=== PATIENT | male | born 1930 | race Caucasian/White ===

== ENCOUNTER 2017-04-22 09:04 | Outpatient (CLI) | payer MEDICARE ==
--- NOTE | 2017-04-22 11:55 | ULT ---
BILATERAL TESTICULAR ULTRASOUND: Date: 04/22/17 HISTORY: Scrotal swelling. COMPARISON: None. TECHNIQUE: Gillespie scale, color flow, Doppler imaging, and spectral waveform analysis performed of the left and rig ht testicles. FINDINGS: Right Hemiscrotum: Right testicle has a homogeneous echotexture. No intratesticular mass. Right testicle measures 3.8 x 2.0 x 4.1 cm. Epididymis has a slightly heterogeneous echotexture suspicious for possible small epidi dymal cyst. Overall, epididymis measures 0.9 x 0.7 cm. There is a large right-sided hydrocele with se ptation. Left Hemiscrotum: Left testicle has a homogeneous echotexture. No intratesticular masses. Left testicle measures 4.8 x 3.1 x 1.9 cm. Left epididymis measures 0.5 x 1.0 cm. There is a large left-sided hydrocele. Small mary unt of septation suspected. Testicular Doppler: There is symmetric and vascular flow to the left and right testicle. IMPRESSION: Large, septated hydroceles, bilaterally. POS: [facility]
== END 2017-04-22 09:05 | disposition home or self-care (01) ==
LOC: ULT 09:04
PROVIDERS: ATTEND Family Medicine
DX: N50.89 Other specified disorders of the male genital organs (principal); N43.3 Hydrocele, unspecified
CPT/HCPCS: 76870; 93976

== ENCOUNTER 2017-05-31 09:57 | Outpatient (CLI) | payer MEDICARE ==
[2017-05-31 12:12] LABS: Bilirubin Negative (Negative); Blood, Urine Negative (Negative); Clarity CLEAR (Clear); Glucose, Urine (Dipstick) Negative (Negative); Leukocyte Negative (Negative); Nitrite Negative (Negative); Protein, Urine (Dipstick) Trace mg/dL (Neg-Trace); Specific Gravity, Urine 1.022 (1.002-1.036); pH, Urine 6.5 (5.0-9.0)
[2017-05-31 12:14] LABS: Bacteria/HPF None Seen HPF (None Seen); Hyaline Casts/LPF 4-6 HYALINE CAST LPF (0-3 Hyaline); RBC/HPF 0-3 HPF (0-3); Squamous Epithelial 0-3 HPF (0-3); WBC/HPF 0-3 HPF (0-3)
--- NOTE | 2017-06-06 08:37 | EKG ---
Test Reason : Blood Pressure : / mmHG Vent. Rate : 073 BPM Atrial Rate : 073 BPM P-R Int : 174 ms QRS Dur : 066 ms QT Int : 382 ms P-R-T Axes : 060 -05 066 degrees QTc Int : 420 ms Poor data quality, interpretation may be adversely affected Sinus rhythm with occasional , and consecutive Premature ventricular complexes and Fusion complexes Abnormal ECG When compared with ECG of 25-FEB-2016 09:44, Fusion complexes are now Present QRS duration has decreased Confirmed by TOM FISH MD ([id number]) on 06/06/2017 8:37:09 AM Referred By: HEMA Confirmed By:TOM FISH MD
== END 2017-05-31 09:58 | disposition home or self-care (01) ==
LOC: LABBT 09:57
PROVIDERS: ATTEND Urology
DX: Z01.818 Encounter for other preprocedural examination (principal); N43.3 Hydrocele, unspecified
CPT/HCPCS: 81001; 87086; 93005; 93010

== ENCOUNTER 2017-06-08 06:48 | Day surgery (SDC) | payer MEDICARE ==
[2017-05-31 10:39] VITALS: BMI 24.3
[2017-06-08] MEDS ORDERED: Bupivacaine 0.25% HCL 30 ML VIAL ONE (08:33)
[2017-06-08] MEDS ORDERED: Lidocaine 1% (PF) 30 ML VIAL ONE (08:33)
[2017-06-08] MEDS ORDERED: Bacitracin Zinc Ointment 30 gm TUBE ONE (08:33)
[2017-06-08] MEDS ORDERED: Ondansetron HCl/PF 4 MG/2 ML Vial ONE (08:38)
[2017-06-08] MEDS ORDERED: Famotidine/PF 20 mg/2ml Vial ONE (08:38)
[2017-06-08] MEDS ORDERED: Fentanyl 100 MCG/2 ML VIAL ONE ×2 (08:38→10:26)
[2017-06-08] MEDS ORDERED: Ondansetron HCl/PF 4 MG/2 ML Vial IVP PRN ×2 (10:29)
[2017-06-08] MEDS ORDERED: Promethazine HCl 25 MG/ML VIAL IM/IV PRN ×2 (10:29)
[2017-06-08] MEDS ORDERED: HYDROcodone/Acetaminophen 5/325 mg Tablet ONE ×2 (11:08→11:43)
--- NOTE | 2017-06-08 12:02 | OP ---
DATE OF SERVICE: 06/08/2017 PREOPERATIVE DIAGNOSIS: Left hydrocele. POSTOPERATIVE DIAGNOSIS: Left hydrocele. PROCEDURE: Left hydrocelectomy bottleneck fashion. SURGEON: Kierra Singh M.D. ANESTHESIA: General with LMA and local anesthetic using 0.25% Marcaine approximately 12 mL BLOOD LOSS: Minimal. DRAIN REMAINING: Mio. COMPLICATIONS: None. FLUID COLLECTED: 525 mL of yellow hydrocele fluid, not sent for specimen. Hydrocele sac was partially resected and also not sent for specimen. INDICATIONS: The patient is an 87-year-old male who is followed in the office for a bothersome left hydrocele. We discussed how unless it was bothered him on a daily basis I would not recommend a resection. He was ready to proceed with this as it was quite bothersome to him. TECHNIQUE: The patient was brought to the room by anesthesia, lying on table in supine position. After general anesthetic, he was laid supine and prepped and draped in sterile fashion. Using an incision in the mid scrotum, it was taken down to the tunica albuginea at least the layers just before that. Once this was taken all the way down, then blunt dissection was able to fully dissect this plane around the hydrocele itself and then it was delivered through the incision and the excess attachments taken down to the neck of the cord. Then, 2 snaps were placed and an incision was made to open up the hydrocele sac, 525 mL of yellow solution was obtained. The sac was then fully opened with electrocautery. The testicle inspected and found to have no lesions nor appendages. A portion of the hydrocele sac was resected and then it was repaired in a bottleneck fashion using 0 Vicryl to reapproximate it in inverted fashion leaving at least a fingerbreadth at the neck of the repair, there was concern initially for in addition to the hydrocele sac, a hernia sac, but this was probed and found to be blind ending as this was just redundant tunica as opposed to any hernia sac. Once the edges of the hydrocele sac were sewn over, then attention was turned to the scrotum where hemostasis was achieved with electrocautery. The testicle was aligned in normal position and put back into the scrotum. Irrigation was used to rinse out the scrotum before returning the testicle to it. Then, the dartos layer was grasped with Allis clamps and before that, an incision was made in the dependent portion of the scrotum for a Mio drain which was placed with a nylon suture and then 3-0 Vicryl was used to reapproximate the dartos in running fashion and 3-0 chromic was used to reapproximate the skin in running fashion. Bacitracin, fluffs and a scrotal support were then applied. The patient tolerated the procedure well and was then awakened and transferred to PACU in stable condition. ARPITA
== END 2017-06-08 12:10 | disposition home or self-care (01) ==
LOC: SDC 06:48
PROVIDERS: ATTEND Urology
PROC: 0VBG0ZZ Excision of Left Spermatic Cord, Open Approach (ICD-10-PCS; principal; 2017-06-08)
DX: N43.3 Hydrocele, unspecified (principal); R35.1 Nocturia; R31.21 Asymptomatic microscopic hematuria; N43.41 Spermatocele of epididymis, single; E78.5 Hyperlipidemia, unspecified; I10 Essential (primary) hypertension; Z90.49 Acquired absence of other specified parts of digestive tract; Z98.890 Other specified postprocedural states; Z85.038 Personal history of other malignant neoplasm of large intestine
CPT/HCPCS: 96374; J0690; J2001; J2405; J3010; S0020; S0028

== ENCOUNTER 2017-06-23 10:47 | Emergency (ER) | payer MEDICARE ==
[2017-06-23 11:30] LABS: #Monocytes 0.6 thou/uL (0.11-0.59); #Neutrophils 5.2 thou/uL (1.40-6.50); %Basophils 0.5 % (0.0-1.0); %Eosinophils 0.3 % (0.0-10.0); %Lymphocytes 14.7 % (21.0-51.0); %Monocytes 9.2 % (0.0-10.0); %Neutrophils 75.3 % (42.0-75.0); Hemoglobin 15.1 g/dL (14.0-18.0); Mean Corpuscular Hemoglobin 31.1 pg (27.0-31.0); Mean Corpuscular Volume 94.1 fl (80.0-94.0); Mean Platelet Volume 7.6 fL (7.4-10.4); Platelet Count 341 thou/uL (130-400); RBC Distribution Width 12.3 % (11.5-14.5); Red Blood Cell (RBC) Count 4.87 mill/uL (4.70-6.10)
[2017-06-23 11:49] LABS: ALT (SGPT) 24 U/L (8-55); AST (SGOT) 24 U/L (5-34); Albumin 3.8 g/dL (3.4-4.8); Alkaline Phosphatase 72 U/L (40-150); Anion Gap 14 mmol/L (10-20); BUN (Urea Nitrogen) 16 mg/dL (8.4-25.7); Bilirubin, Total 0.8 mg/dL (0.2-1.2); Calc. Creatinine Clearance 0 mL/min (70-130); Carbon Dioxide 28 mmol/L (23-31); Chloride 98 mmol/L (98-107); Estimated GFR-MDRD 76; Globulin 3.1 g/dL (2.4-3.5); Glucose 113 mg/dL (83-110); Potassium 3.6 mmol/L (3.5-5.1); Protein, Total 6.9 g/dL (5.8-8.1); Sodium 136 mmol/L (136-145)
[2017-06-23 12:08] LABS: Bilirubin Negative (Negative); Blood, Urine Negative (Negative); Clarity CLEAR (Clear); Glucose, Urine (Dipstick) Negative (Negative); Leukocyte Negative (Negative); Nitrite Negative (Negative); Protein, Urine (Dipstick) Negative (Neg-Trace); Specific Gravity, Urine 1.012 (1.002-1.036)
== END 2017-06-23 13:18 | disposition home or self-care (01) ==
LOC: ERS 10:47
DX: R35.0 Frequency of micturition (principal); I10 Essential (primary) hypertension; E78.5 Hyperlipidemia, unspecified; Z79.899 Other long term (current) drug therapy
CPT/HCPCS: 36415; 80053; 81003; 85025; 99284

== ENCOUNTER 2017-06-26 09:10 | Inpatient (IN) | payer MEDICARE ==
[2017-06-26 10:05] LABS: #Lymphocytes 0.6 thou/uL (1.20-3.40); #Monocytes 0.6 thou/uL (0.11-0.59); #Neutrophils 6.8 thou/uL (1.40-6.50); %Eosinophils 0.1 % (0.0-10.0); %Neutrophils 84.9 % (42.0-75.0); Hemoglobin 17.5 g/dL (14.0-18.0); Mean Corpuscular HGB CONC 33.4 g/dL (32.0-36.0); Mean Corpuscular Volume 92.7 fl (80.0-94.0); Mean Platelet Volume 7.6 fL (7.4-10.4); Platelet Count 334 thou/uL (130-400); RBC Distribution Width 12.4 % (11.5-14.5); Red Blood Cell (RBC) Count 5.63 mill/uL (4.70-6.10)
[2017-06-26 10:10] LABS: INR-International Normal Ratio 1.1; PTT 32.1 SEC (22.9-36.1); Prothrombin Time 14.4 SEC (12.0-14.7)
[2017-06-26 10:18] LABS: ALT (SGPT) 21 U/L (8-55); AST (SGOT) 23 U/L (5-34); Alkaline Phosphatase 79 U/L (40-150); Anion Gap 14 mmol/L (10-20); BUN (Urea Nitrogen) 18 mg/dL (8.4-25.7); Calc. Creatinine Clearance 0 mL/min (70-130); Calcium 9.8 mg/dL (7.8-10.44); Carbon Dioxide 31 mmol/L (23-31); Chloride 92 mmol/L (98-107); Estimated GFR-MDRD 62; Globulin 3.4 g/dL (2.4-3.5); Glucose 141 mg/dL (83-110); Lipase 14 U/L (8-78); Potassium 4.3 mmol/L (3.5-5.1); Protein, Total 7.4 g/dL (5.8-8.1); Sodium 133 mmol/L (136-145)
--- NOTE | 2017-06-26 11:13 | CT ---
CT ABDOMEN AND PELVIS WITH IV CONTRAST: DATE: 06/26/17. HISTORY: Abdominal distention and abdominal pain. The family reports bright red blood per rectum since June t. COMPARISON: None available. FINDINGS: There is mild bibasilar atelectasis with mild elevation of the left hemidiaphragm. There are scattered subcentimeter too small to characterize hypodense lesions in each lobe of the neftaly er with a lobulated low-density structure within the dome of the liver which measures 3.2 cm x 1.9 cm . This may represent a lobulated cyst or conglomeration of small cysts within the dome of the liver. There are subcentimeter too small to characterize hypodense lesions seen in each kidney. There is a larger hypodense lesion within the mid portion of the left kidney which does not demonstrate an atten uation coefficient consistent with simple cyst. Further evaluation with renal ultrasound is recommen ded. The spleen, pancreas, bilateral adrenal glands, and urinary bladder demonstrate a normal CT appearanc e. There is colonic diverticulosis. There is distention of the rectum. Postsurgical changes related to right hemicolectomy are noted. The anastomosis is seen within the region of the mid transverse in t he central abdomen. Multiple dilated loops of small bowel are present measuring up to 3.5 cm in diameter and are fluid an d gas filled. The dilated loops of bowel extend to the level of the small bowel and large bowel anas tomosis. A moderate amount of retained fecal material is seen within the rectum with presacral and minimal per irectal inflammatory changes seen. Again, the rectum is distended with a large amount of retained fe moisés material. Findings may be related to a fecal impaction within the rectum. A stercoral colitis c annot be entirely excluded given the perirectal inflammatory stranding present. Vascular calcifications are seen in the abdominal aorta and involving the iliac arteries. A small amount of free fluid is seen adjacent to the liver. There are bilateral hydroceles with very large left hydrocele present with a question of septations. However, there is also a rounded low-density mass-like structure within the left scrotum. This does not have a normal appearance suggesting a testicle, but this is not well evaluated on this examinati on. However, this mass-like density is not well evaluated. Prior scrotal ultrasound on 04/22/17 did d emonstrate large bilateral hydroceles. IMPRESSION: 1. Partial small bowel obstruction with dilated loops of bowel extending to the level of the small b owel/large bowel anastomosis in the central abdomen. 2. Hypodense left renal lesion which cannot be characterized as a simple cyst on this exam. Followu p renal sonogram on a nonemergent basis is suggested. There are also subcentimeter too small to alex acterize hypodense lesions in each kidney. 3. Large amount of retained fecal material in the rectum, and the rectum is distended with adjacent perirectal inflammatory changes. While the inflammatory change is probably related to distension of the rectum, stercoral colitis cannot be excluded based on this exam. 4. Colonic diverticulosis. 5. Large left and small right-sided hydroceles. There is a rounded mass-like structure within the l eft scrotum centered in the region of the large left hydrocele of which the exact etiology is uncerta in. A normal-appearing testicle is not visualized on the CT evaluation. Followup testicular ultraso und is recommended due to this appearance. 6. Small amount of ascites. POS: [facility]
[2017-06-26 11:22] LABS: Bilirubin Negative (Negative); Blood, Urine Negative (Negative); Clarity CLEAR (Clear); Glucose, Urine (Dipstick) Negative (Negative); Leukocyte Negative (Negative); Nitrite Negative (Negative); Protein, Urine (Dipstick) Trace mg/dL (Neg-Trace); pH, Urine 8.5 (5.0-9.0)
[2017-06-26 11:31] LABS: Specific Gravity, Urine Greater than 1.060 (1.002-1.036)
[2017-06-26] MEDS ORDERED: Fleet Enema 133 ML BOT PR SCH (12:15)
[2017-06-26] MEDS ORDERED: Acetaminophen 325 MG TAB PO PRN (12:54)
[2017-06-26 13:09] LABS: Magnesium 2.4 mg/dL (1.6-2.6); Phosphorus 3.6 mg/dL (2.3-4.7)
[2017-06-26] MEDS: Sodium Chloride 0.9% 1,000 ML IV SCH ×2 (13:20→18:40)
[2017-06-26] MEDS ORDERED: ISOVUE-370 76%-LOCM 1 ML ONE (13:24)
[2017-06-26 13:34] VITALS: BMI 24.3
[2017-06-26] MEDS ORDERED: Senokot S 8.6-50 MG TAB PO SCH (14:30)
[2017-06-26] MEDS ORDERED: Polyethylene Glycol 3350 17 GM Packet PO SCH (14:30)
[2017-06-26] MEDS ORDERED: Bisacodyl 10 MG SUPP PR SCH (15:15)
[2017-06-26] MEDS: Hydrocortisone/Pramoxine (Proctofoam HC) 10 GM BOX PR SCH ×2 (15:27→20:36)
--- NOTE | 2017-06-26 17:23 | HP ---
DATE OF ADMISSION: 06/26/2017 PRIMARY CARE PHYSICIAN: Dr. Jonathan Day. CHIEF COMPLAINT: Abdominal discomfort. HISTORY OF PRESENT ILLNESS: Patient is an 87-year-old male with history of colon cancer, diverticulosis and anal fissure with hemorrhoids, presented to the hospital with abdominal discomfort. Over the past 2-3 weeks, patient has on and off abdominal discomfort along with constipation. The abdominal pain was generalized without any aggravating or relieving factors. There was no nausea, vomiting, fever or chills reported. His pain was moderate in intensity, more or less constant. He denies any palpitations, diaphoresis, heartburn or weight loss. He was recently evaluated by General Surgery, Dr. Jaramillo and was diagnosed with fecal impaction. He also was found to have anal fissure with hemorrhoids. He had intermittent bright red blood mixed with stool. PAST MEDICAL HISTORY: 1. History of colon cancer. 2. Diverticulosis. 3. Hypertension. 4. Dyslipidemia. 5. Recent surgery for hydrocele. 6. Diverticulosis. 7. Hospitalization for syncope. PAST SURGICAL HISTORY: 1. Colon surgery. 2. Hydrocele surgery, recently. ALLERGIES: No known drug allergies. CURRENT HOME MEDICATIONS: Patient is on pravastatin and felodipine. Dosages to be confirmed. SOCIAL HISTORY: Patient drinks alcohol socially. No alcohol use. Currently lives alone. His in the last 2-3 years. He has 3 children. Has good family support. He is DNR. He makes his own decisions with the help of his family. FAMILY HISTORY: Negative for heart disease or malignancy. REVIEW OF SYSTEMS: The following complete review of systems was negative, unless otherwise mentioned in the HPI or below: Constitutional: Weight loss or gain, ability to conduct usual activities. Skin: Rash, itching. Eyes: Double vision, pain. ENT/Mouth: Nose bleeding, neck stiffness, pain, tenderness. Cardiovascular: Palpitations, dyspnea on exertion, orthopnea. Respiratory: Shortness of breath, wheezing, cough, hemoptysis, fever or night sweats. Gastrointestinal: Poor appetite, abdominal pain, heartburn, nausea, vomiting, constipation, or diarrhea. Genitourinary: Urgency, frequency, dysuria, nocturia. Musculoskeletal: Pain, swelling. Neurologic/Psychiatric: Anxiety, depression. Allergy/Immunologic: Skin rash, bleeding tendency. PHYSICAL EXAMINATION: VITAL SIGNS: Temperature 97.6, respirations 20, pulse rate of 78 with blood pressure of 175/109 that improved to 153/88. GENERAL: An 86-year-old male in no apparent distress. HEENT: Head is atraumatic, normocephalic, sclerae are anicteric. Moist mucous membranes. No oral lesion. NECK: Supple, no JVD, no carotid bruit. LUNGS: Clear to auscultation bilaterally, no wheezing, rales or rhonchi. HEART: S1, S2 present. Regular rate and rhythm, 2/6 systolic murmur over the mitral area. ABDOMEN: Soft, mild generalized tenderness, no rebound, guarding, no costovertebral angle tenderness. Bowel sounds were present. Rectal exam showed minimal stool in the rectal vault.He was partially disimpacted in the ER. GENITOURINARY: There is mild tenderness over the surgical site without significant erythema or tenderness. EXTREMITIES: No edema or calf tenderness. NEUROLOGIC: Grossly nonfocal, moves all four extremities. PSYCHIATRY: Alert, awake, oriented x3. SKIN: Warm and dry. LYMPH NODES: No palpable lymph nodes in the neck. PERIPHERAL VASCULAR: Radial pulses palpable bilaterally. MUSCULOSKELETAL: No joint swelling or tenderness. LABORATORY FINDINGS: CBC showed WBC 8.0 with hemoglobin 17.5, platelet count 334. Chemistry showed sodium 133, potassium 4.3, chloride 92, bicarbonate 31, BUN 18, creatinine 1.1. CT scan of the abdomen with IV contrast showed partial small-bowel obstruction with dilated loops of bowel extending to the level of small bowel/large bowel anastomosis in the central abdomen. It also showed findings consistent with fecal impaction with diverticulosis. There was also some other findings including left renal cyst and brown mass-like structure within the left scrotum. KUB done yesterday by my review showed nonspecific bowel gas pattern. IMPRESSION: 1. Abdominal discomfort secondary to fecal impaction. 2. Diverticulosis. 3. Recent hydrocele surgery with abnormal CT. He denies any testicular discomfort. 4. Abnormal left renal lesion consistent with simple cyst. An ultrasound as an outpatient is recommended. 5. Hypertension. His blood pressure was uncontrolled on ER arrival. 6. Dyslipidemia. PLAN: Patient will be monitored in the hospital overnight. We will continue Fleet enemas with MiraLax and Senokot S p.r.n. We will repeat KUBs in a.m. We will resume his home medications including antihypertensives. IV Fluids. Plan of care was discussed with the patient in detail. He stated understanding. ARPITA
[2017-06-26] MEDS: Senokot S 8.6-50 MG TAB PO SCH (20:37)
[2017-06-26] MEDS: Polyethylene Glycol 3350 17 GM Packet PO SCH (20:37)
[2017-06-26] MEDS: Fleet Enema 133 ML BOT PR SCH (20:38)
[2017-06-26] MEDS ORDERED: Pravastatin Sodium 40 MG TAB PO SCH (21:00)
[2017-06-27] MEDS ORDERED: Mag-Al 1200 mg/1200 mg/30 ML UDCUP PO PRN (07:48)
[2017-06-27] MEDS ORDERED: Ondansetron HCl/PF 4 MG/2 ML Vial IVP PRN (07:48)
[2017-06-27] MEDS ORDERED: Acetaminophen 325 MG TAB PO PRN (07:48)
[2017-06-27] MEDS ORDERED: Ondansetron ODT 4 MG TAB PO PRN (07:48)
[2017-06-27] MEDS ORDERED: Calcium Carbonate 500 MG ChewTAB PO PRN (07:48)
[2017-06-27] MEDS: Fleet Enema 133 ML BOT PR SCH ×3 (08:14→22:03)
[2017-06-27] MEDS: Sodium Chloride 0.9% 1,000 ML IV SCH ×3 (08:14→22:02)
[2017-06-27] MEDS: Hydrocortisone/Pramoxine (Proctofoam HC) 10 GM BOX PR SCH ×3 (08:14→22:03)
[2017-06-27] MEDS: Senokot S 8.6-50 MG TAB PO SCH (08:16)
[2017-06-27] MEDS: Polyethylene Glycol 3350 17 GM Packet PO SCH (08:16)
[2017-06-27] MEDS ORDERED: Citrucel 500 MG TAB PO SCH (09:00)
[2017-06-27] MEDS ORDERED: Bisacodyl 10 MG SUPP PR SCH (09:00)
[2017-06-27] MEDS ORDERED: Milk Of Magnesia 30 ML UDCUP PO SCH (09:00)
[2017-06-27] MEDS ORDERED: Famotidine 20 MG TAB PO SCH (09:00)
[2017-06-27 09:21] LABS: Anion Gap 12 mmol/L (10-20); BUN (Urea Nitrogen) 23 mg/dL (8.4-25.7); Calc. Creatinine Clearance 58 mL/min (70-130); Carbon Dioxide 26 mmol/L (23-31); Chloride 99 mmol/L (98-107); Estimated GFR-MDRD 78; Glucose 155 mg/dL (83-110); Magnesium 2.4 mg/dL (1.6-2.6); Phosphorus 3.7 mg/dL (2.3-4.7); Sodium 133 mmol/L (136-145)
[2017-06-27] MEDS ORDERED: Acetaminophen 650 MG Suppository PR PRN (11:05)
[2017-06-27] MEDS ORDERED: hydrALAZINE 20 MG/ML VIAL SLOW IVP PRN (11:07)
[2017-06-27] MEDS ORDERED: Labetalol HCl 100 MG/20 ML VIAL SLOW IVP PRN (11:07)
--- NOTE | 2017-06-27 11:56 | RAD ---
TWO VIEWS ABDOMEN: HISTORY: Small bowel obstruction. Fecal impaction. COMPARISON: 06/25/17. FINDINGS: Multiple distended air-filled loops of small bowel. There is evidence for a small bowel obstruction. Paucity of colonic gas is noted. Limited evaluation for pneumoperitoneum as the diaphragm has been excluded on this exam. IMPRESSION: Small bowel obstruction. Consider general surgical consultation. CODE T POS: [facility]
[2017-06-27] MEDS ORDERED: Lactulose 10 GM/15 ML Oral Solution PR SCH (12:30)
--- NOTE | 2017-06-27 20:44 | CON ---
DATE OF CONSULTATION: 06/27/2017 SURGICAL CONSULTATION PRIMARY CARE PHYSICIAN: Dr. Jonathan Day. CHIEF COMPLAINT: Constipation, abdominal pain, concern for small-bowel obstruction. HISTORY OF PRESENT ILLNESS: Patient is an 87-year-old white male. He gives a remote history of surg luis manuel for colon cancer in [place]. He did not require chemotherapy. He has recently been having progr essive problems with abdominal pain. He notes that he has not had a bowel movement in a while. He p resented to the emergency room yesterday for evaluation of this. Patient had a CT scan performed in the emergency room revealing dilated loops of small bowel with a large ball of stool represented feca l impaction within the rectum. The patient denied any nausea or vomiting, but did note that he had s ome diffuse abdominal discomfort. He was admitted by the hospitalist service. Apparently, nobody ev er did a fecal disimpaction. An abdominal film was done today which showed multiple loops of dilated small bowel consistent with small-bowel obstruction. Nasogastric tube was placed, even though the p atient had not vomited and patient was transferred to the surgical floor. I am consulted, pam garcia for a small-bowel obstruction. Patient notes that he has had a history of constipation. He is not certain what, if anything, he is taken to help regulate his bowels. He tells me his daughter knows and she is not here currently. PAST MEDICAL HISTORY: 1. History of colon cancer (remote, not treated with chemotherapy). 2. Diverticulosis. 3. Hypertension. 4. Dyslipidemia. PAST SURGICAL HISTORY: 1. Right hemicolectomy performed many years ago. 2. Hydrocelectomy in May performed by Dr. Singh. ALLERGIES: No known drug allergies. CURRENT MEDICATIONS: He takes pravastatin and felodipine. He believes he is taken a third medicatio n, but it is not certain what this is. PERSONAL/SOCIAL HISTORY: He is . He had 3 children. He lives in [place] by himself. He has a DNR status. He does not smoke and drinks alcohol socially. REVIEW OF SYSTEMS: Otherwise, unremarkable. FAMILY HISTORY: Noncontributory. PHYSICAL EXAMINATION: VITAL SIGNS: His temperature is 97.2, pulse is between 74 and 91, blood pressure is 120/80. GENERAL: He is a well-developed, well-nourished, pleasant white male in no acute distress. He does have a nasogastric tube in, but little is draining from this. He is alert and oriented x3 and answer s all questions appropriately. HEENT: Unremarkable. NECK: Supple. LUNGS: Clear to auscultation anteriorly. CARDIAC: Regular rate and rhythm. ABDOMEN: Seems mildly to moderately protuberant. Bowel sounds are present and appear to be normoact maryanne. I do not appreciate any tympanitic bowel sounds. RECTAL: Rectal exam is performed. There is a hard fecal impaction just inside the anal sphincter. With appropriate lubrication and reassurance, I performed a fecal disimpaction. There was a large vo lume of stool in the distal rectum and as this was disimpacted hard stool from the upper rectum passe d down to the lower rectum where was all easily removed. The patient is surprisingly seemed to jacob ate it very well. LABORATORY DATA: CBC from yesterday revealed white blood cell count of 8, hemoglobin of 17.5. Chemi stry profile from today revealed essentially normal electrolytes along with calcium, phosphorus and m agnesium. ASSESSMENT AND PLAN: Patient with severe constipation resulted in a fecal impaction. This was jaden cartery disimpacted by myself this afternoon. I will begin an aggressive course of enemas. Tomorrow, I will obtain a Gastrografin small bowel follow-through. I suspect after the stool from his rectum and colon is cleared, his small bowel function will be appropriate. It is possible that he could have a small-bowel obstruction from another etiology, but it seemed to be awfully coincidental.
[2017-06-27] MEDS ORDERED: Famotidine/PF 20 mg/2ml Vial SLOW IVP SCH (21:00)
[2017-06-27] MEDS ORDERED: Nystatin Powder 15 GM BOT TOP SCH (21:00)
--- NOTE | 2017-06-27 23:22 | PDOC.PN ---
- Subjective Encounter Start Date: 06/27/17 Encounter Start Time: 11:00 Patient seen and examined for abd pain. No new complaints. No overnight events - Objective MAR Reviewed: Yes Vital Signs & Weight: Vital Signs (12 hours) Temp Pulse Resp BP Pulse Ox 06/27/17 20:00 98.1 F 86 18 134/78 90 L 06/27/17 13:00 98.1 F 86 18 92 L Weight Weight 165 lb I&O: 06/26/17 06/27/17 06/28/17 06:59 06:59 06:59 Intake Total 875 Balance 875 Result Diagrams: 06/28/17 04:06 06/28/17 04:06 Radiology Reviewed by me: Yes (KUB - SBO) Phys Exam - Physical Examination Constitutional: NAD Respiratory: no wheezing, no rhonchi Cardiovascular: RRR, no rub Gastrointestinal: positive bowel sounds firm, no guarding, rigidity Musculoskeletal: no edema Neurological: moves all 4 limbs Dx/Plan (1) SBO (small bowel obstruction) Code(s): K56.609 - UNSP INTESTNL OBST, UNSP TO PARTIAL VERSUS COMPLETE OBST Status: Acute (2) Fecal impaction Code(s): K56.41 - FECAL IMPACTION Status: Acute (3) HTN (hypertension) Code(s): I10 - ESSENTIAL (PRIMARY) HYPERTENSION Status: Chronic (4) Diverticulosis Code(s): K57.90 - DVRTCLOS OF INTEST, PART UNSP, W/O PERF OR ABSCESS W/O BLEED Status: Chronic - Plan DVT proph w/SCDs NG tube -: Consult gen surg -: Enema -: IV fluids -: NPO, PRN BP meds Review of Systems - Review of Systems Respiratory: negative: Cough, Dry, Shortness of Breath, Hemoptysis, SOB with Excertion, Pleuritic Pain, Sputum, Wheezing Cardiovascular: negative: chest pain, palpitations, orthopnea, paroxysmal nocturnal dyspnea, edema, light headedness, other - Medications/Allergies Allergies/Adverse Reactions: Allergies Allergy/AdvReac Type Severity Reaction Status Date / Time No Known Allergies Allergy Verified 05/31/17 10:39 Medications: Current Medications Acetaminophen (Tylenol) 650 mg PO Q4H PRN PRN Reason: Headache/Fever or Pain Acetaminophen (Tylenol) 650 mg SC Q4H PRN PRN Reason: Headache/Fever or Pain Al Hydroxide/Mg Hydroxide (Maalox) 30 ml PO Q6H PRN PRN Reason: Heartburn or Indigestion Calcium Carbonate (Tums) 1,000 mg PO Q4H PRN PRN Reason: Heartburn or Indigestion Famotidine (Pepcid) 20 mg SLOW IVP BID [facility] Last Admin: 06/27/17 22:03 Dose: 20 mg Hydralazine HCl (Apresoline) 10 mg SLOW IVP Q4H PRN PRN Reason: SBP Greater Than 180 Hydrocortisone/Pramoxine (Proctofoam Hc) 0 gm SC TID [facility] Last Admin: 06/27/17 22:03 Dose: 1 spray Sodium Chloride (Normal Saline 0.9%) 1,000 mls @ 125 mls/hr IV .Q8H [facility] Last Admin: 06/27/17 22:02 Dose: 1,000 mls Labetalol HCl (Normodyne) 10 mg SLOW IVP Q4H PRN PRN Reason: Systolic BP > 180 Lactulose (Lactulose 10 Gm/15ml Oral Flores) 200 gm SC NOW [facility] Stop: 05/12/21 14:30 Last Admin: 06/27/17 15:21 Dose: 200 gm Nystatin (Mycostatin Powder) 0 gm TOP BID [facility] Last Admin: 06/27/17 22:03 Dose: 1 applic Ondansetron HCl (Zofran Odt) 4 mg PO Q6H PRN PRN Reason: Nausea/Vomiting Last Admin: 06/27/17 08:15 Dose: 4 mg Ondansetron HCl (Zofran) 4 mg IVP Q6H PRN PRN Reason: Nausea/Vomiting Sodium Biphosphate/Sodium Phosphate (Fleet Enema) 133 ml SC TID [facility] Last Admin: 06/27/17 22:03 Dose: 133 ml
[2017-06-28 04:44] LABS: Anion Gap 14 mmol/L (10-20); BUN (Urea Nitrogen) 27 mg/dL (8.4-25.7); Calc. Creatinine Clearance 62 mL/min (70-130); Calcium 8.4 mg/dL (7.8-10.44); Carbon Dioxide 23 mmol/L (23-31); Chloride 104 mmol/L (98-107); Estimated GFR-MDRD 84; Glucose 111 mg/dL (83-110); Magnesium 2.8 mg/dL (1.6-2.6); Phosphorus 3.3 mg/dL (2.3-4.7); Potassium 4.9 mmol/L (3.5-5.1); Sodium 136 mmol/L (136-145)
[2017-06-28 04:56] LABS: Band 32 % (5-11); Lymphocytes 17 % (21-51); MDiff Complete? YES; Mean Corpuscular Hemoglobin 31.3 pg (27.0-31.0); Mean Corpuscular Volume 94.9 fl (80.0-94.0); Mean Platelet Volume 7.9 fL (7.4-10.4); Monocytes 12 % (0-10); Neutrophil 39 % (42-75); Platelet Count 283 thou/uL (130-400); RBC Distribution Width 12.3 % (11.5-14.5); Red Blood Cell (RBC) Count 4.47 mill/uL (4.70-6.10); White Blood Cell (WBC) Count 4.4 thou/uL (4.8-10.8)
[2017-06-28] MEDS ORDERED: Sodium Chloride 0.9% 1,000 ML IV SCH ×2 (06:29→12:44)
[2017-06-28 12:02] VITALS: TEMP 97.7
[2017-06-28] MEDS ORDERED: MD-Gastroview 120 ML BOT ONE (13:06)
--- NOTE | 2017-06-28 14:37 | RAD ---
SMALL BOWEL STUDY: Date: 06-28-17 History: Dilated loops of small bowel, bowel obstruction. FINDINGS: Nasogastric tube is noted in place with the tip overlying the expected location of the body of the st omach. Dilated loops of small bowel are seen on the construction safety manager image. Gastrografin was administered via th e nasogastric tube and again multiple dilated loops of bowel are seen. There is faint opacification o f the colon on the one hour image with increasing contrast into the colon on the delayed image at 3 h ours 30 minutes where contrast appears to be in the rectum. 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 IMPRESSION: 1. Partial small bowel obstruction which is actually likely secondary to a mass in the colon near the splenic flexure noted on the CT scan of the abdomen. Further evaluation with colonoscopy is recommen ded. 2. Above findings discussed with Dr. Patton of 06-28-17 at 1316 hours. POS: [facility]
--- NOTE | 2017-06-28 15:41 | PRG ---
DATE OF SERVICE: 06/28/2017 SUBJECTIVE: Mr. Myers is seen one day after performed a fecal disimpaction on him yesterday. I felt this was likely the cause of not only his constipation, but also his apparent bowel obstruction. He had several bowel movements with enemas following his disimpaction. Today, I had ordered a Malissa rografin small bowel follow through. The contrast went through appropriately quickly and resulted in numerous bowel movements of both stool and liquid. The patient tells me he feels much, much better. I started him on a liquid diet which he tolerated uneventfully. His daughter is present at bedside and I had a lengthy conversation with both the patient [facility]. After reviewing his CT scan with Radiology earlier, there is a potential concern regarding a lesion o r a mass near his colonic anastomosis. The patient believes he has had a colonoscopy done in the [facility] t 8 or 9 years. He cannot recall who his aerospace manager is for this. OBJECTIVE: VITAL SIGNS: His temperature is 97.7, pulse 80, blood pressure 150/78. GENERAL: He is in good spirits and tells me he feels well. He has appropriate appetite. Denies jasmyn sea or vomiting. LUNGS: Clear to auscultation. ABDOMEN: Benign with normoactive bowel sounds. EXTREMITIES: Unremarkable. LABORATORY STUDIES: CBC reveals white blood cell count of 4.4, hemoglobin is 14. His chemistry prof ile today is unremarkable. ASSESSMENT AND PLAN: The patient has done well following disimpaction. [facility]. He seems to be in good spirits and without significant symptoms. I feel he is stable and safe for discharge today. I recommended a liquid diet for today and tomorrow, follo wed by a regular diet thereafter. I have recommended to begin taking MiraLax once a day every day. I will see him back in 2 weeks. He requires no other prescriptions from my standpoint. I have also spoken with the patient and his daughter regarding the recommendation for colonoscopy to evaluate the lesion seen on CT scan.
[2017-06-28 15:43] VITALS: BP 135/75
--- NOTE | 2017-06-29 09:14 | DIS ---
DATE OF DISCHARGE: 06/28/2017 DISCHARGE DISPOSITION: Home. FOLLOWUP: 1. Follow up with primary care physician, Dr. Jonathan Day in 1 week. 2. Follow up with Dr. Patton in 2 weeks. CBC and base met after 1 week is recommended. Primary care physician advised to follow. The patient was seen and examined on the day of discharge. Denies any new complaints, no chest pain, shortness of breath, palpitations. DISCHARGE MEDICATIONS: MiraLax 17 grams daily, pravastatin 80 mg at bedtime, felodipine extended rel ease 10 mg twice a day. 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 Patton. BRIEF HOSPITAL COURSE: Patient is an 87-year-old male with colon cancer with anal fissure presented to the emergency room with abdominal discomfort. Please refer to the history and physical dated 06/15 for further details. The patient was admitted to the hospital with diagnosis of abdominal discomfort secondary to fecal im paction. He was manually disimpacted in the emergency room. He was started on MiraLax along with en emas with slow improvement. CT scan of the abdomen and pelvis on admission showed partial small-emanuel l obstruction with dilated loops of bowel extending to the level of small bowel/large bowel anastomos is in the central abdomen. Next morning, patient underwent KUB that was consistent with small-bowel obstruction. The patient was evaluated by General Surgery. His NG tube was placed. He was manually disimpacted again. He was started on enemas with good response. On the day of discharge, he underw ent small bowel study that showed partial small-bowel obstruction which was probably secondary to a c olon mass near the splenic flexure. A colonoscopy was recommended. On the day of discharge, patient was evaluated by General Surgery and appears safe for discharge. Plan of care was discussed with e patient and the family in detail. They stated understanding. On the CT scan of the abdomen, there was also some rounded mass-like structure within the left scrotu m. The patient recently had hydrocele surgery. He was advised to follow up with Urology for further workup. FINAL DIAGNOSES: 1. Small-bowel obstruction. 2. Fecal impaction. 3. Hypertension. 4. Diverticulosis. 5. Suspected colon mass. Colonoscopy as outpatient is recommended. 6. Recent hydrocele surgery with abnormal CT scan. There was no testicular discomfort. The patient will follow up with Urology as outpatient. 7. Plan of care was discussed with the patient and the family at the bedside. They stated brooklynan noah.
== END 2017-06-28 16:05 | disposition home or self-care (01) | DRG 389 ==
LOC: ERS 09:10 → 2SW 12:50 → OBSVTOIN 06-27 11:03 → SURG B 06-27 13:14
PROVIDERS: ADMIT Internal Medicine; ATTEND Internal Medicine
DX: K56.609 Unspecified intestinal obstruction, unspecified as to partial versus complete obstruction (principal); C18.9 Malignant neoplasm of colon, unspecified; K56.41 Fecal impaction; K57.90 Diverticulosis of intestine, part unspecified, without perforation or abscess without bleeding; E78.5 Hyperlipidemia, unspecified
CPT/HCPCS: 36415; 74019; 74177; 74250; 80048; 80053; 81003; 82274; 82728; 83605; 83690; 83735; 84100; 84443; 85025; 85610; 85730; 96360; Q0162; S0028